=== PATIENT | female | born 1930 | race Caucasian/White ===

== ENCOUNTER 2017-09-16 22:09 | Emergency (ER) | payer BC ==
[~2017-09-16] VITALS: Ht 152.4 cm; Wt 63.5 kg
[~2017-09-16 22:09] MED LIST: ASPIR 8181 MG PO; BETAMETHASONE D50 G2 TOP; CENTRUM SILVER1 EAC4 PO; DIOVAN320 MG PO; GABAPENTIN 100100 MG PO; GLUCOSAMINE HC500 MG PO; IRON325 PO; MAXZIDE-25 MG1 EACH PO; MIRALAX17 GM PO; NEURONTIN 300300 M1 PO; NORCO 5-325 TA1 EACH PO; TENORMIN50 MG PO; ZETIA10 MG PO
[2017-09-16] MEDS ORDERED: ONDANSETRON HCL4 M2 PO (22:20)
[2017-09-16 22:40] LABS: ABSOLUTE BASOPHILS 0.1 thou/uL (0.0-0.2); ABSOLUTE EOSINOPHILS 0.1 thou/uL (0.0-0.7); ABSOLUTE MONOCYTES 0.8 thou/uL (0.0-1.2); EOSINOPHILS 1.1 %; HEMATOCRIT 48.4 % (37.0-47.0); HEMOGLOBIN 16.1 gm/dL (12.0-15.0); LYMPHOCYTES 28.6 %; MCHC 33.2 g/dL (28.0-37.0); MCV 90.5 fL (80.0-100.0); MONOCYTES 11.5 %; MPV 7.5 fl. (7.2-11.1); NUCLEATED RBCS 0 /100WBC; PLATELET COUNT* 309 thou/uL (150-400); POLYS 57.8 %; RBC 5.34 mil/uL (4.20-5.00); RDW-CV 12.9 % (10.5-14.5); WBC 6.9 thou/uL (4.0-11.0)
[2017-09-16 22:42] LABS: ANION GAP 7 mmol/L (7-16); BUN 13 mg/dL (7-18); CALCIUM 9.5 mg/dL (8.5-10.1); CHLORIDE 96 mmol/L (98-107); CO2 29 mmol/L (21-32); CREATININE 0.9 mg/dL (0.6-1.3); GLUCOSE 110 mg/dL (70-99); POTASSIUM 3.7 mmol/L (3.5-5.1); SODIUM 132 mmol/L (136-145)
[2017-09-16 22:49] LABS: ALBUMIN 3.7 g/dL (3.4-5.0); ALKALINE PHOSPHATASE 117 U/L (46-116); SGOT 18 U/L (15-37); SGPT 19 U/L (30-65); TOTAL BILIRUBIN 0.4 mg/dL (<0.1-1.0); TOTAL PROTEIN 7.6 g/dL (6.4-8.2); TROPONIN-I LEVEL <0.06 ng/mL (<0.06)
[2017-09-16 23:51] LABS: URINE BILIRUBIN NEGATIVE (Negative); URINE BLOOD TRACE (Negative); URINE CLARITY CLEAR; URINE COLOR STRAW; URINE GLUCOSE-RANDOM NEGATIVE (Negative); URINE KETONES NEGATIVE (Negative); URINE LEUKOCYTES-REFLEX NEGATIVE (Negative); URINE NITRITE-REFLEX NEGATIVE (Negative); URINE PROTEIN NEGATIVE (Negative); URINE SPECIFIC GRAVITY 1.015 (1.005-1.030); URINE UROBILINOGEN 0.2 E.U./dl (0.2-1.0)
[2017-09-17] MEDS ORDERED: CLONIDINE0.1 PO (00:40)
[2017-09-17 00:52] VITALS: BP 122/66
--- NOTE | 2017-09-17 10:54 | EKG ---
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 : 1930 Requested By: Carmen Madrid Order Number: [id number] MD: Braydon Wells Measurements Intervals [place] Rate: 83 P: 53 MN: 256 QRS: -19 QRSD: 86 T: 47 QT: 367 QTc: 432 Interpretive Statements Sinus rhythm Prolonged MN interval Left atrial enlargement Borderline left axis deviation Probable anterior infarct, old Compared to ECG 11/07/2016 01:48:39 rate increased Electronically Signed On 09-17-2017 10:54:04 CDT by Braydon Wells [email or web address] <ELECTRONICALLY SIGNED> By: Braydon Wells MD, [facility] 09/17/17 1054 Braydon Wells MD, [facility] /EPI
== END 2017-09-17 00:56 | disposition home or self-care (01) ==
LOC: M.ERS 22:09
PROVIDERS: Emergency Medicine
DX: I16.0 Hypertensive urgency (principal); I10 Essential (primary) hypertension; Z90.710 Acquired absence of both cervix and uterus; Z85.038 Personal history of other malignant neoplasm of large intestine; Z88.5 Allergy status to narcotic agent

== ENCOUNTER 2017-09-21 07:31 | Inpatient (IN) | payer BC ==
[~2017-09-21] VITALS: Ht 144.8 cm; Wt 57.2 kg
[~2017-09-21 07:31] MED LIST changes: +CLONIDINE0.1 PO; +ONDANSETRON HCL4 M2 PO
[2017-09-21 07:45] VITALS: BP 185/86
[2017-09-21] MEDS ORDERED: DIOVAN320 MG PO (07:52)
[2017-09-21 08:51] LABS: ABSOLUTE EOSINOPHILS 0.1 thou/uL (0.0-0.7); ABSOLUTE LYMPHOCYTES 1.1 thou/uL (0.8-5.3); ABSOLUTE MONOCYTES 0.7 thou/uL (0.0-1.2); ABSOLUTE NEUTROPHILS 3.8 thou/uL (1.6-8.1); BASOPHILS 0.8 %; EOSINOPHILS 1.7 %; HEMATOCRIT 44.1 % (37.0-47.0); HEMOGLOBIN 15.2 gm/dL (12.0-15.0); LYMPHOCYTES 18.7 %; MCH 30.5 pg (26.0-34.0); MCHC 34.4 g/dL (28.0-37.0); MCV 88.7 fL (80.0-100.0); MONOCYTES 12.3 %; MPV 7.9 fl. (7.2-11.1); NUCLEATED RBCS 0 /100WBC; PLATELET COUNT* 310 thou/uL (150-400); POLYS 66.5 %; RBC 4.97 mil/uL (4.20-5.00); RDW-CV 12.9 % (10.5-14.5); WBC 5.8 thou/uL (4.0-11.0)
[2017-09-21 09:35] LABS: ALBUMIN 3.3 g/dL (3.4-5.0); ALKALINE PHOSPHATASE 100 U/L (46-116); ANION GAP 7 mmol/L (7-16); BUN 14 mg/dL (7-18); CALCIUM 8.7 mg/dL (8.5-10.1); CHLORIDE 97 mmol/L (98-107); CO2 26 mmol/L (21-32); CREATININE 0.7 mg/dL (0.6-1.3); GLUCOSE 115 mg/dL (70-99); LIPASE 139 U/L (73-393); MAGNESIUM 1.8 mg/dL (1.8-2.4); NT-PRO BRAIN NAT PEPTIDE 161 pg/mL (<300); POTASSIUM 3.9 mmol/L (3.5-5.1); SGOT 15 U/L (15-37); SGPT 16 U/L (30-65); SODIUM 130 mmol/L (136-145); TOTAL BILIRUBIN 0.6 mg/dL (<0.1-1.0); TOTAL PROTEIN 6.8 g/dL (6.4-8.2); TROPONIN-I LEVEL <0.06 ng/mL (<0.06)
[2017-09-21 11:43] LABS: URINE BILIRUBIN NEGATIVE (Negative); URINE BLOOD NEGATIVE (Negative); URINE CLARITY CLEAR; URINE COLOR YELLOW; URINE GLUCOSE-RANDOM NEGATIVE (Negative); URINE KETONES NEGATIVE (Negative); URINE LEUKOCYTES-REFLEX 1+ (Negative); URINE NITRITE-REFLEX NEGATIVE (Negative); URINE PROTEIN NEGATIVE (Negative); URINE UROBILINOGEN 0.2 E.U./dl (0.2-1.0)
--- NOTE | 2017-09-21 11:45 | EKG ---
[place] [address] ELECTROCARDIOGRAM REPORT Name: BARRY PALOMARES Room: [place] [address] ADM IN [facility].#: [id number] Admission: 09/21/17 Attend Phys: Hermes Kovacs, Discharge: Date of : 30 Report #: [id number] THIS REPORT FOR: //name// [facility] ED Test Date: 2017-09-21 Test Time: 07:46:46 Pat Name: BARRY PALOMARES Department: Room: [facility] Gender: F Road Monkey: Evens AWAN : 1930 Requested By: Servando Jansen Order Number: [id number] MD: Braydon Wells Measurements Intervals [place] Rate: 75 P: 47 IN: 275 QRS: -12 QRSD: 84 T: 51 QT: 380 QTc: 425 Interpretive Statements Sinus rhythm septal q waves Prolonged IN interval Inferior infarct, old Compared to ECG 09/16/2017 22:19:53 Myocardial infarct finding still present Electronically Signed On 09-21-2017 11:45:14 CDT by Braydon Wells [email or web address] <ELECTRONICALLY SIGNED> By: Braydon Wells MD, [facility] 09/21/17 1145 0746 0746 Braydon Wells MD, [facility] /EPI
[2017-09-21 11:52] LABS: BACTERIA-REFLEX 1-9 Few /HPF (None Seen); CASTS None Seen /LPF (None Seen); CRYSTALS None Seen /LPF (None Seen); SQUAMOUS 0-3 Few /LPF (0-3); URINE RBC 0-2 Rare /HPF (0-2); URINE WBC-REFLEX 0-5 Rare /HPF (0-5)
--- NOTE | 2017-09-21 12:35 | NUR ---
DR DE LA ROSA NOTIFIED PT HAS NEUROSTIMULATOR AND CANNOT HAVE AN MRI.
[2017-09-21 14:16] VITALS: BP 184/96
[2017-09-21 16:00] VITALS: BP 115/50
--- NOTE | 2017-09-21 17:20 | 2DMMODE ---
[place] [address] 2 D/M-MODE ECHOCARDIOGRAM Name: BARRY PALOMARES Room: [address] IN [facility]#: [id number] Admission: 09/21/17 Attend Phys: Hermes Leal Discharge: Date of : 30 Date of Service: 09/21/17 1720 Report #: [id number] THIS REPORT FOR: //name// APPROVED REPORT Study performed: 09/21/2017 16:30:55 EXAM: Comprehensive 2D, Doppler, and color-flow Echocardiogram Patient Location: In-Patient Room #: [facility] Status: routine BSA: 1.60 HR: 78 bpm BP: 177/90 mmHg Rhythm: NSR Other Information Study Quality: Good Indications Hypertension/HDD 2D Dimensions LVEF(%): 76.22 (>50%) IVSd: 9.63 (7-11mm) LVOT Diam: 17.00 (18-24mm) LVDd: 43.40 mm PWd: 10.04 (7-11mm) Ascending Ao: 33.23 (22-36mm) LVDs: 24.01 (25-40mm) Aortic Root: 24.94 mm [place]'s LVEF: 76.22 % Volumes Left Atrial Volume (Systole) LA ESV Index: 28.90 mL/m2 Aortic Valve AoV Peak Esau.: 2.70 m/s AO Peak Gr.: 29.12 mmHg LVOT Max P.71 mmHg AO Mean Gr.: 16.22 mmHg LVOT Mean P.95 mmHg LVOT Max V: 1.30 m/s AO V2 VTI: 58.23 cm LVOT Mean V: 0.78 m/s SAEID (VTI): 1.10 cm2 LVOT V1 VTI: 28.30 cm Mitral Valve E/A Ratio: 1.05 [place] [address] 2 D/M-MODE ECHOCARDIOGRAM Name: BARRY PALOMARES Room: [address] IN .R.#: [id number] Admission: 09/21/17 Attend Phys: Hermes Leal Discharge: Date of : 30 Date of Service: 09/21/17 1720 Report #: [id number] MV Decel. Time: 183.67 ms MV E Max Esau.: 1.19 m/s MV PHT: 53.26 ms MVA (PHT): 4.13 cm2 Pulmonary Valve PV Peak Esau.: 1.15 m/s PV Peak Gr.: 5.25 mmHg Tricuspid Valve TR Peak Gr.: 31.47 mmHg RVSP: 36.00 mmHg Left Ventricle The left ventricle is normal size. There is normal LV segmental wall motion. There is normal left ventricular wall thickness. Left ventricular systolic function is normal. LVEF is 65-70%. Transmitral Doppler flow pattern suggests impaired LV relaxation. Right Ventricle The right ventricle is normal size. The right ventricular systolic function is normal. Atria The left atrium size is normal. The right atrium size is normal. Aortic Valve Moderate aortic valve sclerosis. No aortic regurgitation is present. Moderate aortic stenosis. Mitral Valve There is mitral annular calcification. Mild mitral regurgitation. No evidence of mitral valve stenosis. Tricuspid Valve The tricuspid valve is normal in structure. Trace tricuspid regurgitation. The RVSP is 35-40 mmHg. Pulmonic Valve The pulmonary valve is normal in structure. There is no pulmonic valvular regurgitation. Great Vessels The aortic root is normal in size. IVC is normal in size and collapses with >50% [place] [address] 2 D/M-MODE ECHOCARDIOGRAM Name: BARRY PALOMARES Room: [address] IN [facility]#: [id number] Admission: 09/21/17 Attend Phys: Hermes Leal Discharge: Date of : 30 Date of Service: 09/21/17 1720 Report #: [id number] There is no pericardial effusion. <Conclusion> The left ventricle is normal size. There is normal left ventricular wall thickness. Left ventricular systolic function is normal. LVEF is 65-70%. Transmitral Doppler flow pattern suggests impaired LV relaxation. Moderate aortic valve sclerosis. Moderate aortic stenosis. Mild mitral regurgitation. Trace tricuspid regurgitation. The RVSP is 35-40 mmHg. IVC is normal in size and collapses with >50% inspiration <ELECTRONICALLY SIGNED> By: Cam Carbajal MD, FACC 09/21/17 [id number] Cam Carbajal MD, FACC /INF
[2017-09-21] MEDS ORDERED: TUMS PO (17:31)
[2017-09-21] MEDS ORDERED: PRILOSEC 20 MG20 MG PO (17:31)
--- NOTE | 2017-09-21 18:52 | NUR ---
PT UP TO ROOM THIS AFTERNOON. PT A&OX4. UP TO BR WITH ASSIST. TOLERATING PO WELL
[2017-09-21 20:00] VITALS: BP 113/59
[2017-09-22] VITALS (7 sets, daily range): BP systolic 96–171; BP diastolic 48–89
--- NOTE | 2017-09-22 04:27 | NUR ---
ASSUMED CARE OF PT AT 1930, NURSING ASSESSMENT COMPLETED AT START OF SHIFT. PT VOICED NO CONCERNS, ON TELE MONITOR TRACING SINUS RHYTHM WITH 1ST DEGREE AV BLOCK. FALL PRECAUTIONS IN PLACE, CALL LIGHT WITHIN REACH. PROGRESSING TOWARDS GOALS. HOURLY ROUNDING COMPLETED.
[2017-09-22 05:17] LABS: HEMATOCRIT 43.6 % (37.0-47.0); HEMOGLOBIN 14.4 gm/dL (12.0-15.0); MCH 30.1 pg (26.0-34.0); MCV 91.1 fL (80.0-100.0); MPV 7.8 fl. (7.2-11.1); RBC 4.78 mil/uL (4.20-5.00); WBC 5.7 thou/uL (4.0-11.0)
[2017-09-22 05:38] LABS: BUN 8 mg/dL (7-18); CALCIUM 8.7 mg/dL (8.5-10.1); CHOLESTEROL 170 mg/dL (<200); CO2 24 mmol/L (21-32); CREATININE 0.7 mg/dL (0.6-1.3); GLUCOSE 89 mg/dL (70-99); HDL CHOLESTEROL 47 mg/dL (>40); LDL CHOLESTEROL 103 mg/dL (<100); MAGNESIUM 1.6 mg/dL (1.8-2.4); TC:HDL 3.6 Ratio (Not establshd); TRIGLYCERIDE 103 mg/dL (<150); TROPONIN-I LEVEL <0.06 ng/mL (<0.06); VLDL 21 mg/dL (<40)
[2017-09-22 06:40] LABS: ANION GAP 10 mmol/L (7-16); CHLORIDE 99 mmol/L (98-107); SERUM ASSESSMENT CLEAR; SODIUM 133 mmol/L (136-145)
--- NOTE | 2017-09-22 13:02 | NUR ---
ASSUMED PT CARE AT 0700 PT IS ALERT AND ORIENTED X 4 PT DENIES PAIN OR SOA ON RA, PT IS A FALL RISK BED ALARM IS ON, PT GRANDDAUGHTER AARON SIMPSON IS APPROVED BY PT TO GIVE INFORMATION TO, THIS NURSE EDUCATED PT AND GRANDDAUGHTER ABOUT MEDICATIONS PT IS RECEIVING FOR BLOOD PRESSURE, PT IS UP WITH SBA WHEN GRANDDAUGHTER IS IN ROOM PT REFUSES TO CALL FOR ASSISTANCE HAS GRANDDAUGHTER HELP, PT IS SR 1ST ON THE MONITOR, CARDIOLOGY SIGNED OFF PT CAN DISCHARGE AWAITING HOSPITALIST, WILL CONTINUE TO MONITOR
--- NOTE | 2017-09-22 13:18 | CON ---
[address] [address] CONSULTATION Name: BARRY PALOMARES Room: [address] ADM IN M.R.#: [id number] Admission: 09/21/17 Attend Phys: Hermes Kovacs, Discharge: Date of : 30 Report #: [id number] THIS REPORT FOR: //name// CC: AUGUST Kovacs DATE OF SERVICE: 09/21/2017 CARDIOLOGY CONSULTATION HISTORY OF PRESENT ILLNESS: The patient is an 87-year-old single white female who was last seen in the hospital after she complained of left arm pain. The patient has no previous history of heart disease. She does have a long history of hypertension and hyperlipidemia. She actually underwent carotid endarterectomy here at [place] in October 2016 after she was found to have a high-grade right carotid stenosis. She apparently tolerated the surgery well. Recently, the patient's blood pressure has been elevated. She just saw her physician 4 days ago. At that time, he increase Diovan from 160 mg to 320 mg a day. The patient also has clonidine to take as needed for elevated blood pressure. The patient had actually come to the Emergency Room Sunday night last week with elevated blood pressure and was sent home. Today, the patient was at home when she complained of some aching of her left arm. She felt weak. She had a headache and her blood pressure was high. Family brought her to the Emergency Room and she was admitted. She denies recurrent headaches, sweating spells. She has been told she had a heart murmur in the past, but no kidney disease. She denies a history of myocardial infarction or chest pain. She is not very active because of her age and uses a walker. She denied any shortness of breath, palpitations or syncope. PAST MEDICAL HISTORY: She has had previous hemicolectomy for colon cancer, mastectomy for breast cancer. She has had 2 back surgeries, right carotid endarterectomy, hypertension, hyperlipidemia. MEDICATIONS: On admission consisted of Diovan, aspirin, atenolol, Zetia, Neurontin. ALLERGIES: SHE HAS INTOLERANCE TO CODEINE. FAMILY HISTORY: Her mother had congestive heart failure. SOCIAL HISTORY: She is , lives in [place] by herself. No smoking or alcohol abuse. REVIEW OF SYSTEMS: She has had no history of stroke, asthma, peptic ulcer disease, liver disease, kidney disease, psychiatric illness [place] [address] CONSULTATION Name: MARIELLEBARRY Room: [address]#: [id number] Admission: 09/21/17 Attend Phys: Hermes Kovacs, Discharge: Date of : 30 Report #: [id number] PHYSICAL EXAMINATION: GENERAL: Revealed an elderly female, lying in bed. She appeared in no distress. VITAL SIGNS: She had a blood pressure of 170/80, pulse is 70. She is afebrile. HEENT: She was anicteric, conjunctivae pink. Mucous membranes moist. NECK: Neck veins nondistended. No carotid bruits. CHEST: Clear to auscultation. CARDIOVASCULAR: Regular rate and rhythm without murmur. ABDOMEN: Soft, nontender, no abdominal bruits. EXTREMITIES: Had no edema. Dorsalis pedis pulse cannot be palpated. SKIN: Cool and dry. NEUROLOGIC: Nonfocal. LYMPH: No adenopathy. MUSCULOSKELETAL: No joint effusion. RADIOLOGICAL DATA: ECG shows a sinus rhythm. There are no ST or T-wave change. LABORATORY DATA: Her workup, she actually had a nuclear stress test in September 2016 prior to her carotid surgery that showed no evidence of ischemia with an ejection fraction of 79%. Her lab work, sodium 130, creatinine . Liver function studies were normal. Troponin 0.06. White blood cell count 5.8, hemoglobin 15.2. Urinalysis was negative for protein, rare rbc's. IMPRESSION AND RECOMMENDATIONS: 1. Accelerated hypertension. The patient has been on a beta-rachel and ARB. I would not recommend a diuretic because of her hyponatremia. She recently had her ARB dose increased. I would consider adding a calcium rachel. 2. Left arm pain. Suspect noncardiac. 3. History of breast cancer. 4. History of colon cancer. 5. Hyperlipidemia. The patient is on Zetia. <ELECTRONICALLY SIGNED> By: Braydon Wells MD, [facility] 09/22/17 1318 1527 1905Braydon Wells MD, FAC /nt
[2017-09-22 15:34] LABS: CALCIUM 8.9 mg/dL (8.5-10.1); CREATININE 0.8 mg/dL (0.6-1.3); MAGNESIUM 1.7 mg/dL (1.8-2.4); POTASSIUM 3.8 mmol/L (3.5-5.1)
--- NOTE | 2017-09-22 17:00 | NUR ---
CM SPOKE TO THE PATIENT TO DISCUSS HOME SITUATION, DICHARGE PLANNING, AND TO INFORM OF THE ROLE OF CM. PATIENT ALERT, ORIENETED, AND INDEPENDENT WITH ADL'S. PATIENT RESIDES AT HOME ALONE. 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 PATIENT USES A CANE FOR MOBILITY. PATIENT HAS NO HX OF HH OR SNF, AND PLANS TO RETURN HOME AT D/C. CM WILL REMAIN AVIALABLE TO ASSIST AND FOLLOW NEEDED.
[2017-09-23] VITALS (10 sets, daily range): BP systolic 96–142; BP diastolic 47–74
--- NOTE | 2017-09-23 03:56 | NUR ---
ASSUMED PT CARE AT 1930, PT IS A&OX4, PT DENIES ANY PAIN AT THIS TIME. PT STATES SOME ANXIETY ABOUT HER BLOOD PRESSURE AND NEW MEDICATIONS THAT SHE IS BEING STARTED ON, VERBAL EDUCATION GIVEN PT STATES SHE FEELS A LITTLE BETTER. PT IS TRACHING NSR WITH 1DAVB. PT IS UP STB TO THE BSC, SHE HAS HER PERSONAL CANE TO ASSIST. PT IS NPO AT THIS TIME. FOR PENDING PROCEDURE IN THE AM. BED IN LOW POSITION, CALL LIGHT IN REACH, BED ALARM ON, YELLOW ARM BAND AND SOCKS IN PLACE, HOURLY ROUNDING COMPLETED FOR PT SAFETY. NEURO CHECKS COMPLETED CHARTED.
[2017-09-23] MEDS ORDERED: NORVASC5 MG PO (16:59)
[2017-09-23] MEDS ORDERED: KEFLEX500 M1 PO (17:04)
[2017-09-23] MEDS ORDERED: CHLORTHALIDONE25 MG PO (17:10)
--- NOTE | 2017-09-23 19:00 | NUR ---
PT WITH COMPLETE DC ORDER. REVIEWED DC INSTRUCTIONS WITH PT AND HER DTR. QUESTIONS ANSWERED TO PT SATISFACTION. IV AND TELE MONITOR DC'D. PT IN POSSESSION OF ALL HER BELONGINGS. PT TRANSPORTED TO HOSPITAL ENTRANCE VIA WC AND NURSING STAFF. PT'S DTR TO TRANSPORT PT TO HOME VIA PERSONAL CAR.
--- NOTE | 2017-10-02 17:26 | CON ---
[address] [address] CONSULTATION Name: BARRY PALOMARES Room: [address] IN M.R.#: [id number] Admission: 09/21/17 Attend Phys: Hermes Kovacs, Discharge: 09/23/17 Date of : 30 Report #: [id number] THIS REPORT FOR: //name// CC: AUGUST Kovacs DATE OF SERVICE: 09/22/2017 HISTORY OF PRESENT ILLNESS: This is an 87-year-old female patient on whom the history is not clear. She is admitted with generalized weakness, but how long it is going on is not clear. She indicates that she had 2 back surgeries in the past. That left her with the weakness and numbness in the left lower extremity. That has impaired her ambulation. She felt worst. How long she has been feeling worse is not clear. Initially, she said it is about a week or so, but then, she indicated she is not certain weeks of the exact duration. When she admitted, she had hypertension as well as hyponatremia. Both of them are somewhat better and she feels back to her baseline. REVIEW OF SYSTEMS: Also positive for some left arm pain. That has become better. Her weakness, which was generalized has resolved. She had a back surgery, which was done in [facility]. She has been weak in the left lower extremity since then. She is not complaining of any other new symptoms and in fact appeared to have improved. She denies any new eye, ENT, respiratory, , musculoskeletal, constitutional, dermatological, hematological, psychiatric, throat, allergic, endocrine symptom associated with present symptomatology. She did have some nausea, which has gone. She has been seen by Cardiology and they do not think her pain is cardiac in origin. PAST MEDICAL HISTORY: Positive for back surgery. FAMILY HISTORY: Negative for early age stroke. SOCIAL HISTORY: She denies the use of alcohol. PHYSICAL EXAMINATION: Indicates that she is alert, responsive, able to follow simple and complex commands. Her speech, concentration, fund of knowledge and memory is at her baseline. Cranial nerve examination 2-12 is unremarkable. She is weak in the left leg, but that is her baseline. Her position sense is intact. Reflexes are mostly symmetrical. Tone looks unremarkable. There is no cerebellar sign. I could not have a very good look at the patient's fundus. She is moderately built individual who does not have any dysmorphic features of eyes, ears and face. Her vision and hearing looks adequate. Her pulses are somewhat difficult to feel, but she has no edema, cyanosis or jaundice. Cardiac examination does not appear to be showing any abnormality. No respiratory difficulty or rhonchi was noticed on either side. Blood pressure is 149/72, respirations 17, pulse is 75, temperature [place] 98.4[place] [address] CONSULTATION Name: MARIELLEBARRY Room: [address] IN .R.#: [id number] Admission: 09/21/17 Attend Phys: Hermes Kovacs, Discharge: 09/23/17 Date of : 30 Report #: [id number] LABORATORY DATA: Her white count is normal at 5.3. Her sodium was low at 130. IMPRESSION AND PLAN: It would appear this patient had an aggravation of her preexisting symptoms of weakness in the leg, but she has become much better after treating the hypertension and hyponatremia. I discussed with her further workup like doing the MRI and doing the PT, OT. She does not want to do any of those because she said that she had a workup in the past and she has physical therapy in the past. She feels back to her baseline and as mentioned above, she does not want to do any of the further workup. She is competent to make a decision. Therefore, I will sign off. Please call if the situation changes. <ELECTRONICALLY SIGNED> By: Mark Aranda MD 10/02/17 1726 1110 [id number] Aranda MD /nt
== END 2017-09-23 19:24 | disposition home or self-care (01) | DRG 644 ==
LOC: M.ERS 07:31 → M.2W 10:26 → M.TBA-ER 10:26 → M.2W 14:28
PROVIDERS: Emergency Medicine Emergency Medical Services; ADMIT Family Medicine
DX: E22.2 Syndrome of inappropriate secretion of antidiuretic hormone (principal); I67.4 Hypertensive encephalopathy; N39.0 Urinary tract infection, site not specified; E87.1 Hypo-osmolality and hyponatremia; I10 Essential (primary) hypertension; R07.89 Other chest pain; E83.42 Hypomagnesemia; I35.0 Nonrheumatic aortic (valve) stenosis; E78.5 Hyperlipidemia, unspecified; Z88.5 Allergy status to narcotic agent; Z88.8 Allergy status to other drugs, medicaments and biological substances; Z79.899 Other long term (current) drug therapy; Z85.3 Personal history of malignant neoplasm of breast; Z85.038 Personal history of other malignant neoplasm of large intestine; Z90.710 Acquired absence of both cervix and uterus; Z82.49 Family history of ischemic heart disease and other diseases of the circulatory system; Z79.82 Long term (current) use of aspirin